=== PATIENT | female | born 1985 | race Two or more races ===

== ENCOUNTER → 2024-05-21 | Emergency (ER) | payer OTHER ==
[~2024-05-21] VITALS: Ht 160 cm; Wt 65.8 kg
[~2024-05-21] MED LIST: LORAZEPAM0.5 MG PO; LORazepam 2 MG/ML VIAL IM STA
== END | disposition home or self-care (01) ==
LOC: ER 09:36
DX: F41.8 Other specified anxiety disorders (principal)